=== PATIENT | female | born 1975 | race Caucasian/White ===

== ENCOUNTER 2018-12-23 23:35 | Emergency (ER) | payer OTHER ==
[2018-12-24] MEDS: HYDROCODONE/APAP (10/325) TAB PO (02:50)
== END 2018-12-24 03:46 | disposition home or self-care (01) ==
LOC: FTE 23:35
DX: S83.92XA Sprain of unspecified site of left knee, initial encounter (principal); W18.30XA Fall on same level, unspecified, initial encounter; Y92.9 Unspecified place or not applicable
CPT/HCPCS: 73562; 99283-25